=== PATIENT | female | born 1990 | race Caucasian/White ===

== ENCOUNTER 2017-05-05 21:09 | Emergency (ER) | payer OTHER ==
[2017-05-05] MEDS ORDERED: HYDROcod/ACETAM 5/325 MG TABLET PO STA (21:20)
--- NOTE | 2017-05-05 21:23 | ED Physician Documentation ---
PD HPI LOWER EXT INJURY - Stated complaint Stated Complaint: KNEE INJURY - History obtained from History obtained from: Patient - History of Present Illness PD HPI LOW EXT INJURY LOCATION: Left, Knee Type of injury: Other (Playing volleyball tonight, she came down wrong and she thinks her leg inverted at the knee, she has lateral knee pain and cannot walk. No other injuries. No possibility of .) Review of Systems Constitutional: reports: Reviewed and negative Nose: reports: Reviewed and negative Throat: reports: Reviewed and negative PD PAST MEDICAL HISTORY - Present Medications Home Medications: Ambulatory Orders Medication Instructions Recorded Confirmed No Known Home Medications [No 05/05/17 05/05/17 Known Home Medications] - Allergies Allergies/Adverse Reactions: Allergies Allergy/AdvReac Type Severity Reaction Status Date / Time No Known Drug Allergies Allergy Verified 05/05/17 21:29 PD ED PE NORMAL - Vitals Vital signs reviewed: Yes - General General: Alert and oriented X 3, No acute distress - Extremities Extremities: Other (Small L knee effusion, NTTP and no deformity. Ligamentous testing and grind testing Nl.) - Psych Psych: Normal mood, Normal affect Results - Vitals Vitals: Vital Signs - 24 hr 05/05/17 21:21 Temperature 36.5 C Heart Rate 80 Respiratory 16 Rate Blood Pressure 121/72 O2 Saturation 100 Oxygen O2 Source Room air - Rads (name of study) L knee 4v Radiology: EMP read contemporaneously (neg) Departure - Departure Disposition: 01 Home, Self Care Clinical Impression: Left knee sprain Qualifiers: Encounter type: initial encounter Involved ligament of knee: lateral collateral ligament Qualified Code(s): S83.422A - Sprain of lateral collateral ligament of left knee, initial encounter Condition: Good Record reviewed to determine appropriate education?: Yes Instructions: ED Sprain Knee Comments: If you are still in pain in a few days arrange to see an orthopedic surgeon on return home. Return if worse. Do not drink or drive while taking narcotic pain medication. Note that many narcotic pain relievers also contain Tylenol/acetaminophen. Please ensure that your total dose of acetaminophen from all sources does not exceed 3 g (3000 mg) per day. You may get constipated while on this medication. Take a stool softener such as Colace twice a day while you are on it. Also add an zaui-bpy-fuagweu laxative such as senna or MiraLAX on any day that you do not have a bowel movement. If you received a narcotic pain medication or sedative while in the emergency department, do not drive for the next 24 hours.
[2017-05-05 21:27] VITALS: BP 121/72
[2017-05-05] MEDS ORDERED: HYDROcod/ACETAM 5/325 MG TABLET ONE (21:37)
--- NOTE | 2017-05-05 22:08 | XRAY Preliminary Report ---
Exam: XR KNEE 4 VIEW LT IMPRESSION: Normal knee radiography. [facility] SITE ID: [id number]
[2017-05-05] MEDS ORDERED: HYDROcod/ACET 5/325 Prepack 6 PO STA (22:10)
--- NOTE | 2017-05-05 22:11 | XRAY Report ---
EXAM: LEFT KNEE RADIOGRAPHY EXAM DATE: 05/05/2017 09:47 PM. CLINICAL HISTORY: Knee injury playing volleyball, pain COMPARISON: None. TECHNIQUE: 4 views. FINDINGS: Bones: Normal. No fractures or bone lesions. Joints: Normal. No effusion. No subluxations. Soft Tissues: Normal. No soft tissue swelling. IMPRESSION: Normal knee radiography. [facility] Referring Provider Line: [phone] SITE ID: [id number]
[2017-05-05] MEDS ORDERED: HYDROcod/ACET 5/325 Prepack 6 PO ONE (22:22)
== END 2017-05-05 22:31 | disposition home or self-care (01) ==
LOC: ED 21:09
DX: S83.422A Sprain of lateral collateral ligament of left knee, initial encounter (principal); X50.9XXA Other and unspecified overexertion or strenuous movements or postures, initial encounter; Y93.68 Activity, volleyball (beach) (court)
CPT/HCPCS: 73564; 99283; A9270